=== PATIENT | female | born 1970 | race African-American/Black ===

== ENCOUNTER 2017-10-16 13:58 | Inpatient (IN) | payer OTHER ==
[~2017-10-16] VITALS: Ht 157.5 cm; Wt 78.5 kg
[2017-10-16 16:18] LABS: BASOPHIL % 0.2 % (0-2); PLATELET COUNT 210 x10^3mcL (130-400); RED CELL DISTRIBUTION WIDTH 14.1 % (11.5-14.5)
[2017-10-16 16:46] VITALS: BP 146/102
[2017-10-16 17:32] VITALS: BP 120/75
[2017-10-16 18:09] LABS: CALCIUM 9.3 mg/dL (8.5-10.1); CARBON DIOXIDE 24.8 mmol/L (21-32); CHLORIDE SERUM 104 mmol/L (98-107); GFR1 > 60 mL/min; GLUCOSE SERUM 112 mg/dL (74-106); POTASSIUM SERUM 3.7 mmol/L (3.5-5.1); SODIUM SERUM 139 mmol/L (136-145)
[2017-10-16 18:14] LABS: ALBUMIN 3.9 g/dL (3.4-5.0); ALKALINE PHOSPHATASE 42 U/L (46-116); ALT/SGPT 16 U/L (14-59); AST/SGOT 16 U/L (15-37); BILIRUBIN TOTAL 0.76 mg/dL (0.20-1.00); TOTAL PROTEIN, SERUM 7.6 g/dL (6.4-8.2)
[2017-10-16 18:17] LABS: MAGNESIUM 1.9 mg/dL (1.8-2.4); PHOSPHOROUS 3.5 mg/dL (2.5-4.9)
[2017-10-16 18:19] LABS: CHOLESTEROL/HDL RATIO 1.6
[2017-10-16 18:51] LABS: FREE T4 0.87 ng/dL (0.76-1.46); FREE THYROXINE INDEX 2.3 ug/dL (1.4-4.5); T4(THYROXINE) 7.2 ug/dL (4.7-13.3)
[2017-10-16 19:01] LABS: T3 TOTAL 1.06 ng/mL
[2017-10-16 21:31] VITALS: BP 125/88
[2017-10-17 05:03] VITALS: BP 136/96
[2017-10-17 07:07] LABS: CALCIUM 8.2 mg/dL (8.5-10.1); CARBON DIOXIDE 25.9 mmol/L (21-32); CHLORIDE SERUM 108 mmol/L (98-107); CREATININE SERUM 0.7 mg/dL (0.6-1.0); GFR1 > 60 mL/min; GLUCOSE SERUM 123 mg/dL (74-106); POTASSIUM SERUM 4.9 mmol/L (3.5-5.1); SODIUM SERUM 141 mmol/L (136-145)
[2017-10-17 07:08] LABS: BASOPHIL % 0.1 % (0-2); PLATELET COUNT 184 x10^3mcL (130-400); RED CELL DISTRIBUTION WIDTH 13.8 % (11.5-14.5)
[2017-10-17 08:50] VITALS: BP 139/100
[2017-10-17 13:29] VITALS: BP 152/91
[2017-10-17 13:57] LABS: microscopic required? NO
[2017-10-17 14:21] LABS: UA SPECIFIC GRAVITY 1.015 (1.005-1.035); urine erythrocyte NEGATIVE (NEGATIVE)
[2017-10-17 14:36] LABS: AMPHETAMINE QUAL UR NONE DETECTED (NEG <=1000)
[2017-10-17 17:31] VITALS: BP 158/101
[2017-10-17 21:55] VITALS: BP 110/76
[2017-10-18 06:04] VITALS: BP 110/71
[2017-10-18 07:23] LABS: CALCIUM 8.1 mg/dL (8.5-10.1); CARBON DIOXIDE 25.4 mmol/L (21-32); CHLORIDE SERUM 108 mmol/L (98-107); CREATININE SERUM 0.8 mg/dL (0.6-1.0); GFR1 > 60 mL/min; GLUCOSE SERUM 92 mg/dL (74-106); POTASSIUM SERUM 4.1 mmol/L (3.5-5.1); SODIUM SERUM 140 mmol/L (136-145)
[2017-10-18 07:56] LABS: BASOPHIL % 0.2 % (0-2); PLATELET COUNT 134 x10^3mcL (130-400); RED CELL DISTRIBUTION WIDTH 14.1 % (11.5-14.5)
[2017-10-18 09:00] VITALS: BP 117/75
[2017-10-18] MEDS ORDERED: AMLODIPINE BES2.5 M1 PO (09:19)
[2017-10-18] MEDS ORDERED: METHIMAZOLE5 MG PO (09:22)
[2017-10-18 10:10] VITALS: BP 117/75
== END 2017-10-18 14:08 | disposition home or self-care (01) | DRG 150 ==
LOC: ED 13:58 → DU 15:26
PROVIDERS: Emergency Medicine; Family Medicine
PROC: 2Y41X5Z Packing of Nasal Region using Packing Material (ICD-10-PCS; principal; 2017-10-16)
DX: R04.0 Epistaxis (principal); N17.0 Acute kidney failure with tubular necrosis; I10 Essential (primary) hypertension; E03.9 Hypothyroidism, unspecified; Z68.31 Body mass index [BMI] 31.0-31.9, adult
CPT/HCPCS: 82962; 83880; 84439; J2060; J2270; J2405; J7030; Q0092